=== PATIENT | male | born 1990 | race African-American/Black ===

== ENCOUNTER 2021-01-19 22:24 | Emergency (ER) | payer SELFPAY ==
[~2021-01-19] VITALS: Ht 175.3 cm; Wt 114.2 kg
[2021-01-19 22:50] VITALS: BP 128/66
--- NOTE | 2021-01-20 00:22 | NUR ---
SWAB SENT PATIENT TOLERATED WELL. VERBALIZED UNDERSTANDING OF SELF CARE AND FOLLOW UP CARE AT HOME. AMBULATORY TO DISCHARGE DESK WITHOUT COMPLICATIONS.
== END 2021-01-20 00:25 | disposition home or self-care (01) ==
LOC: ED 23:00
DX: U07.1 COVID-19 (principal); M79.10 Myalgia, unspecified site; R43.9 Unspecified disturbances of smell and taste
CPT/HCPCS: 99283; U0003; U0005